=== PATIENT | female | born 1950 | race Caucasian/White ===

== ENCOUNTER 2022-04-08 16:42 | Emergency (ER) | payer MEDICARE, SELFPAY ==
[2022-04-08 17:06] VITALS: BP 142/61; PULSE 110; RESP 22; TEMP 37.8; O2SAT 97
--- NOTE | 2022-04-08 17:46 | ED.GENADULT ---
HPI - General Adult General Chief complaint: Upper Respiratory Infection Stated complaint: Fever Source: patient, family and RN notes reviewed History of Present Illness HPI narrative: 72-year-old female presents to urgent care with at side. Patient reports headache, vomiting, sore throat, fevers, headaches and cough x 24 hours. Patient has not had any medication for her symptoms. Denies any chest pain, shortness of breath, or abdominal pain. Some parts of this dictation were generated by voice recognition software and may contain typographical and/or grammatical inaccuracies. Related Data Home Medications Medication Instructions Recorded Confirmed amoxicillin 875 mg-potassium tablet 04/08/22 clavulanate 125 mg tablet clonazepam 0.5 mg tablet mg 04/08/22 duloxetine 60 mg capsule,delayed mg PO 04/08/22 release escitalopram oxalate 10 mg tablet mg 04/08/22 estradiol 1 mg tablet mg 04/08/22 hydrochlorothiazide 12.5 mg tablet mg 04/08/22 levothyroxine 100 mcg tablet mcg 04/08/22 pravastatin 40 mg tablet mg 04/08/22 tizanidine 2 mg tablet mg 04/08/22 Allergies Allergy/AdvReac Type Severity Reaction Status Date / Time codeine Allergy Rash Verified 04/08/22 17:04 Review of Systems Review of Systems: CONSTITUTIONAL: fevers and generalized weakness EYES: Denies visual changes, redness, or discharge. ENT: sore throat CARDIOVASCULAR: Denies chest pain, palpitations, or edema. RESPIRATORY: Reports cough. GASTROINTESTINAL: Reports vomiting GENITOURINARY: Denies dysuria or hematuria. SKIN: Denies rash or itching. MUSCULOSKELETAL: myalgia. NEUROLOGIC: headache PMFSH Comments At the time of my signature, I reviewed and agree with the nursing past medical, surgical, social, and family history. There is no relevant family history pertinent to the patient complaint. Exam Narrative: GENERAL: Patient appears weak and lethargic HEAD: normocephalic, atraumatic. EYES: Sclera clear/white. Vision is grossly intact. EARS: External ears normal, auditory canals clear and without drainage. Hearing grossly intact. NOSE: External nose normal with no obvious nasal discharge, nares without redness, no rhinorrhea. THROAT: Mucous membranes moist, posterior pharynx clear. NECK: Neck supple, non-tender without lymphadenopathy, masses or thyromegaly. CARDIOVASCULAR: Tachycardic and rhythm without murmurs, gallops, or rubs. RESPIRATORY: Clear to auscultation. Breath sounds equal bilaterally. No wheezes, rales, or rhonchi. GASTROINTESTINAL: Abdomen soft, non-tender, nondistended. Bowel sounds are active. No hepato-splenomegaly, or palpable masses. No guarding. SKIN: warm, intact with no suspicious lesions or rash, good texture and turgor. NEURO: awake, alert, and oriented to person, place and time. There were no obvious focal neurologic abnormalities. Course Course Level of Care: Express Care Visit Vital Signs Vital signs: Vital Signs Temperature 100.0 F H 04/08/22 17:06 Pulse Rate 110 H 04/08/22 17:06 Respiratory Rate 22 H 04/08/22 17:06 Blood Pressure 142/61 H 04/08/22 17:06 Pulse Oximetry 97 04/08/22 17:06 Oxygen Delivery Room Air 04/08/22 17:06 Temperature 100.0 F H 04/08/22 17:06 Pulse Rate 110 H 04/08/22 17:06 Respiratory Rate 22 H 04/08/22 17:06 Blood Pressure 142/61 H 04/08/22 17:06 Pulse Oximetry 97 04/08/22 17:06 Oxygen Delivery Room Air 04/08/22 17:06 Reviewed Medical Decision Making MDM Narrative Medical decision making narrative: Discussed with patient and the patient should be transferred to emergency department for further evaluation and at the very least IV fluids for hydration. Patient agrees and is driving the patient. Report called to bella Mcdonough RN at [facility], per patient request. Pt given Zofran and Tylenol prior to discharge. Differential Diagnosis Differential Diagnosis: Covid, flu, strep Vital Signs Vital Signs:
[2022-04-08] MEDS: ONDANSETRON HCL ODT 4 MG TABLET PO (17:53)
--- NOTE | 2022-04-08 17:59 | PC.NURSE ---
multi attempts to scan tylenol unable. 1000mg po tylenol given per order at 1755
== END 2022-04-08 18:06 | disposition short-term general hospital (02) ==
PROVIDERS: Emergency Provider Nurse Practitioner Family
DX: U07.1 COVID-19 (principal)
CPT/HCPCS: 87081; 87426; 87804; 87880; 99203; A9270; C9803; G0463